=== PATIENT | female | born 1995 | race Two or more races ===

== ENCOUNTER 2022-04-15 08:41 | Emergency (ER) | payer OTHER ==
[~2022-04-15] VITALS: Ht 157.5 cm; Wt 66.7 kg
== END 2022-04-15 14:43 | disposition home or self-care (01) ==
LOC: ER 08:41
DX: R11.10 Vomiting, unspecified (principal); Z20.822 Contact with and (suspected) exposure to COVID-19

== ENCOUNTER 2022-05-04 19:50 | Emergency (ER) | payer OTHER ==
[~2022-05-04] VITALS: Ht 157.5 cm; Wt 68.0 kg
[2022-05-05] MEDS ORDERED: ONDANSETRON ODT4 MG PO (06:00)
[2022-05-05] MEDS ORDERED: PEPCID40 MG PO (06:00)
== END 2022-05-05 06:04 ==
LOC: ER 19:50
DX: K29.70 Gastritis, unspecified, without bleeding (principal); J45.909 Unspecified asthma, uncomplicated; Z88.6 Allergy status to analgesic agent; Z91.013 Allergy to seafood

== ENCOUNTER 2023-09-26 17:03 | Emergency (ER) | payer OTHER ==
[~2023-09-26] VITALS: Ht 157.5 cm; Wt 61.2 kg
[~2023-09-26 17:03] MED LIST: BACTRIM DS TAB1 EACH PO; ONDANSETRON ODT4 MG PO; PEPCID40 MG PO
[2023-09-26] MEDS ORDERED: METHYLPREDNISOLONE SOD SUCC 125 MG VIAL ONE (17:15)
[2023-09-26] MEDS ORDERED: KETOROLAC TROMETHAMINE 30 MG VIAL ONE (17:15)
[2023-09-26] MEDS ORDERED: ACETAMINOPHEN 500 MG GEL..CAP PO STA (17:16)
[2023-09-26] MEDS ORDERED: CEFTRIAXONE SODIUM 1,000 MG VIAL IM STA (17:16)
[2023-09-26] MEDS ORDERED: CEFTRIAXONE SODIUM 1,000 MG VIAL ONE (17:20)
[2023-09-26] MEDS ORDERED: LIDOCAINE HCL 1% 10ML VIAL ONE (17:20)
[2023-09-26] MEDS ORDERED: ACETAMINOPHEN 500 MG GEL..CAP PO ONE (17:20)
== END 2023-09-26 17:27 | disposition home or self-care (01) ==
LOC: ER 17:04
DX: J06.9 Acute upper respiratory infection, unspecified (principal); J00 Acute nasopharyngitis [common cold]; Z88.6 Allergy status to analgesic agent; Z91.013 Allergy to seafood

== ENCOUNTER 2023-09-28 21:25 | Emergency (ER) | payer OTHER ==
[~2023-09-28] VITALS: Ht 157.5 cm; Wt 61.2 kg
[2023-09-28] MEDS ORDERED: HYOSCYAMINE SULFATE 0.125 MG TAB.SUBL ONE (21:52)
[2023-09-28] MEDS ORDERED: FAMOTIDINE/PF 20 MG/2 ML VIAL ONE (21:53)
[2023-09-28] MEDS ORDERED: METHYLPREDNISOLONE SOD SUCC 125 MG VIAL ONE (21:53)
[2023-09-28] MEDS ORDERED: ONDANSETRON HCL 2 MG/ML VIAL ONE (21:53)
[2023-09-28] MEDS ORDERED: ONDANSETRON HCL 2 MG/ML VIAL IV ONE (22:00)
[2023-09-28] MEDS ORDERED: FAMOTIDINE/PF 20 MG/2 ML VIAL IV PUSH ONE (22:00)
[2023-09-28] MEDS ORDERED: METHYLPREDNISOLONE SOD SUCC 125 MG VIAL IV ONE (22:00)
[2023-09-28] MEDS ORDERED: HYOSCYAMINE SULFATE 0.125 MG TAB.SUBL SL ONE (22:00)
[2023-09-28] MEDS ORDERED: 0.9 % SODIUM CHLORIDE 1,000 ML IV SCH (22:00)
[2023-09-28 22:06] LABS: HEMATOCRIT 30.5 % (36.0-45.00); MEAN CORPUSCULAR HGB CONC 30.6 g/dl (32.0-36.0); PLATELET COUNT 337 K/uL (150-450); RED BLOOD COUNT 4.41 M/uL (4.00-6.00); RED CELL DISTRIBUTION WIDTH 18.2 % (11.5-14.5)
[2023-09-28 22:07] LABS: HEMOGLOBIN 9.3 g/dL (12.0-15.00); MEAN CELL VOLUME 69.1 fL (80.00-100.00)
[2023-09-28 22:19] LABS: ALBUMIN 3.6 gm/dL (3.4-5.0); BILIRUBIN TOTAL 0.13 mg/dL (0.3-1.2); CREATININE SERUM 0.72 mg/dL (0.55-1.02); GFR 95.77; POTASSIUM 3.06 mEq/L (3.5-5.1); TOTAL PROTEIN 7.6 gm/dL (6.4-8.2)
[2023-09-28] MEDS ORDERED: LEVSIN/SL0.125 MG SL (23:27)
[2023-09-28] MEDS ORDERED: PEPCID AC20 MG PO (23:27)
[2023-09-28] MEDS ORDERED: ONDANSETRON ODT8 MG PO (23:27)
== END 2023-09-28 23:47 | disposition home or self-care (01) ==
LOC: ER 21:25
PROVIDERS: General Practice
DX: K52.9 Noninfective gastroenteritis and colitis, unspecified (principal); Z20.822 Contact with and (suspected) exposure to COVID-19; Z88.6 Allergy status to analgesic agent; Z91.013 Allergy to seafood

== ENCOUNTER 2024-01-21 00:28 | Emergency (ER) | payer OTHER ==
[~2024-01-21] VITALS: Ht 157.5 cm; Wt 65.8 kg
[~2024-01-21 00:28] MED LIST changes: +LEVSIN/SL0.125 MG SL; +ONDANSETRON ODT8 MG PO; +PEPCID AC20 MG PO
[2024-01-21] MEDS ORDERED: DOLOGESIC 500-1 EACH PO (04:38)
[2024-01-21] MEDS ORDERED: CEFADROXIL500 MG PO (04:38)
[2024-01-21] MEDS ORDERED: CENTANY30 GM TOP (04:39)
== END 2024-01-21 04:43 ==
LOC: ER 00:28
DX: S61.300A Unspecified open wound of right index finger with damage to nail, initial encounter (principal); W19.XXXA Unspecified fall, initial encounter; Y93.89 Activity, other specified; Y92.69 Other specified industrial and construction area as the place of occurrence of the external cause; Y99.8 Other external cause status; Z88.0 Allergy status to penicillin; Z91.013 Allergy to seafood

== ENCOUNTER 2024-08-12 08:38 | Emergency (ER) | payer OTHER ==
[~2024-08-12] VITALS: Ht 157.5 cm; Wt 68.5 kg
[~2024-08-12 08:38] MED LIST changes: +CEFADROXIL500 MG PO; +CENTANY30 GM TOP; +DOLOGESIC 500-1 EACH PO
[2024-08-12] MEDS ORDERED: BUTALB/ACETAMINOPHEN/CAFFEINE 1 TAB TABLET PO ONE (11:15)
[2024-08-12] MEDS ORDERED: 0.9 % SODIUM CHLORIDE 500 ML IV ONE (11:15)
[2024-08-12] MEDS ORDERED: METOCLOPRAMIDE HCL 10 MG in DEXTROSE 5 % IN WATER 50 ML IV ONE (11:15)
[2024-08-12] MEDS ORDERED: BUTALB-ACETAMI1 EACH PO (13:19)
[2024-08-12] MEDS ORDERED: METOCLOPRAMIDE10 MG PO (13:20)
== END 2024-08-12 14:59 | disposition home or self-care (01) ==
LOC: ER 08:38
DX: G43.909 Migraine, unspecified, not intractable, without status migrainosus (principal); Z88.6 Allergy status to analgesic agent; Z91.013 Allergy to seafood